=== PATIENT | male | born 1950 | race Caucasian/White ===

== ENCOUNTER → 2016-08-17 | Outpatient (CLI) | payer MEDICARE, BC ==
[2016-08-17 08:37] LABS: ALT 72 U/L (21-72); AST 35 U/L (17-59); Alkaline Phosphatase 73 U/L (38-126); Anion Gap 10 mmol/L; Blood Urea Nitrogen 18 mg/dL (9-20); Calcium 9.2 mg/dL (8.4-10.2); Carbon Dioxide 27 mmol/L (22-30); Chloride 105 mmol/L (98-107); Cholesterol 160 mg/dL (<200); Glucose 96 mg/dL (74-99); HDL Cholesterol 43 mg/dL (40-60); Non-African American GFR(MDRD) >60 (>60 ml/min/1.73 sqM); Potassium 4.6 mmol/L (3.5-5.1); Sodium 142 mmol/L (137-145); Total Protein 6.8 g/dL (6.3-8.2); Triglycerides 169 mg/dL (<150)
== END | disposition home or self-care (01) ==
LOC: LABWHC1 07:31
PROVIDERS: ATTEND Internal Medicine Interventional Cardiology
DX: E78.2 Mixed hyperlipidemia (principal)
CPT/HCPCS: 36415; 80053; 80061

== ENCOUNTER → 2017-01-03 | Outpatient (CLI) | payer MEDICARE, BC ==
--- NOTE | 2017-01-03 12:40 | CT ---
EXAMINATION TYPE: CT chest wo con DATE OF EXAM: 01/03/2017 COMPARISON: 11/08/2015 HISTORY: Cough, SOB CT DLP: 480.60 mGycm. Automated Exposure Control for Dose Reduction was Utilized. TECHNIQUE: CT scan of the thorax is performed without IV contrast. FINDINGS: LUNGS: The lungs are grossly clear, there is no concerning parenchymal mass or nodule identified. T here is no pleural effusion or pneumothorax seen. The tracheobronchial tree is patent. Pleural thick ening bilaterally. Subpleural nodularity is stable. Multiple blebs are seen compatible with chronic o bstructive pulmonary disease. Subsegmental atelectasis at both lung bases. MEDIASTINUM: Lack of IV contrast is noted to limit evaluation for mediastinal and especially hilar ad enopathy. There is a 4 x 3.6 cm mass in the anterior mediastinum which previously measured 4 x 2.9 cm . Coronary artery calcification noted. Heart is enlarged. Trace of pericardial fluid seen.. OTHER: Calcified lesion in the spleen is stable may be related to calcified cyst or previous hematoma . Hypertrophic and degenerative change of the spine. Small hiatal hernia. IMPRESSION: 1. Mild progression of the anterior mediastinal mass. Measures 4 x 3.6 cm and previously measured 4 x 2.9 cm. #2. Subpleural subcentimeter nodularity bilaterally is stable and likely postinflammatory.
== END | disposition home or self-care (01) ==
LOC: RADCTMAIN 12:08
PROVIDERS: ATTEND Internal Medicine Pulmonary Disease
DX: J98.59 Other diseases of mediastinum, not elsewhere classified (principal); R91.1 Solitary pulmonary nodule; R06.02 Shortness of breath
CPT/HCPCS: 71250

== ENCOUNTER → 2017-03-07 | Outpatient (CLI) | payer MEDICARE, BC ==
[2017-03-07 09:13] LABS: ALT 72 U/L (21-72); AST 34 U/L (17-59); Cholesterol 160 mg/dL (<200); HDL Cholesterol 45 mg/dL (40-60)
== END | disposition home or self-care (01) ==
LOC: LABWHC1 08:44
PROVIDERS: ATTEND Internal Medicine Interventional Cardiology
DX: E78.2 Mixed hyperlipidemia (principal)
CPT/HCPCS: 36415; 80061; 84450; 84460

== ENCOUNTER → 2017-09-06 | Outpatient (CLI) | payer MEDICARE, BC ==
[2017-09-06 08:59] LABS: ALT 60 U/L (21-72); AST 35 U/L (17-59); Albumin 4.2 g/dL (3.5-5.0); Alkaline Phosphatase 74 U/L (38-126); Anion Gap 10 mmol/L; Blood Urea Nitrogen 18 mg/dL (9-20); Calcium 9.8 mg/dL (8.4-10.2); Carbon Dioxide 29 mmol/L (22-30); Chloride 105 mmol/L (98-107); Cholesterol 163 mg/dL (<200); Glucose 102 mg/dL (74-99); HDL Cholesterol 43 mg/dL (40-60); LDL Cholesterol,Calculated 88 mg/dL (0-99); Potassium 4.8 mmol/L (3.5-5.1); Sodium 144 mmol/L (137-145); Total Bilirubin 1.4 mg/dL (0.2-1.3); Total Protein 6.7 g/dL (6.3-8.2); Triglycerides 161 mg/dL (<150)
== END | disposition home or self-care (01) ==
LOC: LABWHC1 07:54
PROVIDERS: ATTEND Internal Medicine Interventional Cardiology
DX: E78.2 Mixed hyperlipidemia (principal)
CPT/HCPCS: 36415; 80053; 80061

== ENCOUNTER → 2018-02-18 | Outpatient (CLI) | payer BC, MEDICARE ==
--- NOTE | 2018-02-18 09:46 | CT ---
EXAMINATION TYPE: CT chest wo con DATE OF EXAM: 02/18/2018 COMPARISON: Prior chest CT January 03, [address] studies[address] PET/CT April 17, 2013. HISTORY: Cough, Shortness of breath, asbestos exposure CT DLP: 758 mGycm. Automated Exposure Control for Dose Reduction was Utilized. TECHNIQUE: CT scan of the thorax is performed without IV contrast. FINDINGS: On localizer image there is round density projecting over lateral left lower lung but this likely corresponds to external anterior density coronal image 25 has no new nodule or mass is clearly seen. LUNGS: There is persistent focal pleural-based scarring laterally left lung base near fissure axial i mage 36 and lateral linear scarring in the right lung base with additional linear scarring medially i n the left lung base. No pleural effusion or pneumothorax is seen bilaterally. No suspicious consolid ation is present. No concerning nodules or masses are noted. MEDIASTINUM: Lack of IV contrast is noted to limit evaluation for mediastinal and especially hilar ad enopathy. There are no definitive new greater than 1 cm hilar or mediastinal lymph nodes. There is p ersistent anterior mediastinal mass anterior to ascending aorta measuring 3.0 x 1.9 cm current study diminished in size from most recent exam one year earlier, enlarged in size from older exams 2011 and 2013 where there was no suspicious hypermetabolic uptake on PET/CT. No cardiomegaly or pericardial e ffusion is seen. Moderate Coronary artery calcification LAD is redemonstrated which is noted marker f or coronary artery disease. Main pulmonary artery is dilated at 3.4 cm at bifurcation axial image 23, CT findings consistent with underlying pulmonary artery hypertension. OTHER: There is stable rim calcified 2.0 cm low dense lesion laterally in spleen presumed benign. The re is partial visualization of exophytic low dense lesion posteriorly mid pole level left kidney pres umed benign simple cyst axial image 69 significant change from PET/CT. There is retroaortic left gulshan l vein which is normal variant. Moderate multilevel spurring to the mid to lower thoracic spine is re demonstrated. IMPRESSION: 1. Interval diminished size of the anterior mediastinal mass. No new suspicious masses or nodules adrianna ntified.
== END | disposition home or self-care (01) ==
LOC: RADCTMAIN 08:36
PROVIDERS: ATTEND Internal Medicine Pulmonary Disease
DX: R91.8 Other nonspecific abnormal finding of lung field (principal)
CPT/HCPCS: 71250

== ENCOUNTER → 2018-03-24 | Outpatient (CLI) | payer MEDICARE ==
[2018-03-24 09:26] LABS: ALT 49 U/L (21-72); AST 31 U/L (17-59); Cholesterol 195 mg/dL (<200); HDL Cholesterol 43 mg/dL (40-60); LDL Cholesterol,Calculated 110 mg/dL (0-99); Triglycerides 208 mg/dL (<150)
== END | disposition home or self-care (01) ==
LOC: LABWHC1 08:26
PROVIDERS: ATTEND Internal Medicine Interventional Cardiology
DX: E78.2 Mixed hyperlipidemia (principal)
CPT/HCPCS: 36415; 80061; 84450; 84460

== ENCOUNTER → 2018-06-24 | Outpatient (CLI) | payer MEDICARE ==
--- NOTE | 2018-06-24 13:46 | CT ---
EXAMINATION TYPE: CT chest wo con DATE OF EXAM: 06/24/2018 COMPARISON: 02/18/2018, 11/08/2015, 01/03/2017 HISTORY: 68-year-old male Shortness of breath. Follow up scan for asbestosis. TECHNIQUE: Contiguous axial scanning of the chest without IV contrast. Coronal and sagittal reconstru ctions performed. CT DLP: 504.7 mGycm Automated exposure control for dose reduction was used. FINDINGS: Heart is normal size with trace anterior basilar pericardial fluid. Coronary vessel calcifications ar e present in remarkable for coronary artery disease. Aorta normal caliber with conventional vessel branching anatomy. Large caliber to the main right and left pulmonary arteries are 2.9 and 2.6 cm, respectively, suggest ing underlying pulmonary arterial hypertension. Redemonstrated anterior mediastinal lobulated soft tissue mass, currently measuring 3.2 x 1.9 cm. On 02/18/2018, this measured 3.0 x 1.9 cm. On 01/03/2017, this measured approximately 5.1 x 3.4 cm. Smaller from 2017 and relatively stable from the patient's recent 02/18/2018 study. Otherwise, no thoracic lymphadenopathy. Some irregular subpleural density anterolateral right base suggesting pleural parenchymal scarring. S imilar changes peripheral left base. No appreciable abnormal associated soft tissue. No consolidation or pleural effusion. Minimal scattered emphysematous change is present. No honeycombing or bronchiec tasis. Tiny hiatal hernia. Visualized upper abdomen shows stable peripherally calcified cystic appearing les ion in the lateral spleen measuring 2.4 cm, likely a pseudocyst. Bones endplate spondylosis mid to lower thoracic spine. No osseous destructive process. IMPRESSION: 1. SOME AREAS OF BIBASILAR PLEURAL PARENCHYMAL SCARRING. NO SPECIFIC CT FINDINGS OF ASBESTOSIS AT THI S TIME. 2. COPD WITH MILD EMPHYSEMA. SUSPECT UNDERLYING PULMONARY ARTERIAL HYPERTENSION. 3. THE LOBULATED ANTERIOR MEDIASTINAL SOFT TISSUE MASS MEASURES 3.2 X 1.9 CM, RELATIVELY UNCHANGED FR OM 02/18/2018 AND NOTED TO BE SMALLER COMPARED TO 01/03/2017.
== END | disposition home or self-care (01) ==
LOC: RADCTMAIN 12:18
PROVIDERS: ATTEND Internal Medicine Pulmonary Disease
DX: J43.9 Emphysema, unspecified (principal)
CPT/HCPCS: 71250

== ENCOUNTER → 2018-10-24 | Outpatient (CLI) | payer MEDICARE ==
[2018-10-24 16:54] LABS: LDL Cholesterol,Calculated 90.6 mg/dL (0.0-131.0); VLDL Calculation 37.4 mg/dL (5.00-40.00)
== END ==
LOC: LABWHC1 08:34
PROVIDERS: ATTEND Internal Medicine Interventional Cardiology
DX: E78.2 Mixed hyperlipidemia (principal)
CPT/HCPCS: 36415; 80061; 84450; 84460

== ENCOUNTER → 2019-04-26 | Outpatient (CLI) | payer MEDICARE ==
[2019-04-26 18:47] LABS: Chol/HDL Ratio 4.18; LDL Cholesterol,Calculated 92.4 mg/dL (0.0-131.0); VLDL Calculation 31.6 mg/dL (5.00-40.00)
== END | disposition home or self-care (01) ==
LOC: LABWHC1 08:34
PROVIDERS: ATTEND Nurse Practitioner Adult Health
DX: E78.2 Mixed hyperlipidemia (principal)
CPT/HCPCS: 36415; 80061; 84450; 84460

== ENCOUNTER → 2020-01-19 | Outpatient (CLI) | payer MEDICARE ==
[2020-01-19 14:14] LABS: African American GFR (CKD) 79.5 (60.0-200.0); Albumin 4.2 g/dL (3.80-4.90); BUN/Creat Ratio 17.27 Ratio (12.00-20.00); Calcium 9.2 mg/dL (8.7-10.3); Chol/HDL Ratio 4.41; Globulin 2.1 g/dL (1.6-3.3); LDL Cholesterol,Calculated 103.2 mg/dL (0.0-131.0); Non-African American GFR(CKD) 68.6 (60.0-200.0); Total Bilirubin 2.1 mg/dL (0.2-1.2); Total Protein 6.3 g/dL (6.2-8.2); VLDL Calculation 36.8 mg/dL (5.00-40.00)
== END | disposition home or self-care (01) ==
LOC: LABWHC1 07:18
PROVIDERS: ATTEND Nurse Practitioner Adult Health
DX: E78.2 Mixed hyperlipidemia (principal); I10 Essential (primary) hypertension
CPT/HCPCS: 36415; 80053; 80061

== ENCOUNTER → 2020-03-08 | Outpatient (CLI) | payer MEDICARE ==
--- NOTE | 2020-03-08 15:17 | CT ---
EXAMINATION TYPE: CT chest wo con DATE OF EXAM: 03/08/2020 COMPARISON: CT chest June 24, 2018 and older studies. HISTORY: F/U for lung nodules, asbestosis CT DLP: 735 mGycm. Automated Exposure Control for Dose Reduction was Utilized. TECHNIQUE: CT scan of the thorax is performed without IV contrast. FINDINGS: LUNGS: Mild to moderate bibasilar linear scarring and/or atelectasis greatest in the periphery anteri or to mid aspect of both lower lungs near diaphragm is redemonstrated. No new greater than 4 mm pulmo nary nodules or masses. No pleural effusion or pneumothorax seen bilaterally. MEDIASTINUM: Lack of IV contrast is noted to limit evaluation for mediastinal and especially hilar ad enopathy. There are no definitive new greater than 1 cm hilar or mediastinal lymph nodes. Anterior s uperior mediastinal soft tissue lesion anterior to the ascending aorta measures 2.4 x 1.8 cm current study axial image 26 slightly decreased in size from most recent study axial image 24 No cardiomegaly or pericardial effusion is seen. Coronary artery calcification is redemonstrated which is noted gauri er for underlying coronary artery disease. OTHER: There is partially exophytic rim calcified 1.9 cm low dense lesion along the superior lateral margin of the spleen redemonstrated presumed benign. Subcentimeter exophytic low-density lesion upper pole level laterally left kidney axial image 64 is presumed benign. Moderate multilevel lateral and anterior spurring in the mid to lower thoracic spine is redemonstrated. IMPRESSION: Lobulated anterior superior mediastinal soft tissue mass anterior to the ascending aorta is diminished in size from most recent study consistent with positive treatment response. Correlate c linically. No new suspicious nodules or adenopathy.
== END | disposition home or self-care (01) ==
LOC: RADCTMAIN 13:44
PROVIDERS: ATTEND Internal Medicine Pulmonary Disease
DX: J98.59 Other diseases of mediastinum, not elsewhere classified (principal); R22.2 Localized swelling, mass and lump, trunk
CPT/HCPCS: 71250

== ENCOUNTER → 2020-11-01 | Outpatient (CLI) | payer MEDICARE ==
[2020-11-01 18:02] LABS: Chol/HDL Ratio 4.79; LDL Cholesterol,Calculated 101.6 mg/dL (0.0-131.0); VLDL Calculation 42.4 mg/dL (5.00-40.00)
== END | disposition home or self-care (01) ==
LOC: LABWHC1 08:03
PROVIDERS: ATTEND Nurse Practitioner Adult Health
DX: E78.2 Mixed hyperlipidemia (principal)
CPT/HCPCS: 36415; 80061; 84450; 84460

== ENCOUNTER → 2021-02-12 | Outpatient (CLI) | payer MEDICARE ==
--- NOTE | 2021-02-12 08:57 | CT ---
EXAMINATION TYPE: CT chest wo con DATE OF EXAM: 02/12/2021 COMPARISON: 03/08/2020 HISTORY: Obstructive sleep apnea, obesity CT DLP: 535.[address] of the chest was performed with lung and mediastinal window settings submitted. The la ck of contrast limits evaluation of the vascular, mediastinal and parenchymal structures including th e upper abdomen. LUNGS: The lungs are clear and free of infiltrate. No atelectasis. No pulmonary nodule or mass is de tected. No pleural effusion. No CT evidence of interstitial lung disease. MEDIASTINUM/WINDY: Thoracic aorta is of normal caliber with limited evaluation given lack of contrast . The heart is enlarged. Of anterior mediastinal nodule redemonstrated measuring 2.4 x 1.5 cm versu s 2.4 x 1.7 cm previously. No lymph nodes greater than 1cm. UPPER ABDOMEN: Round calcified lesion of the spleen is unchanged. OTHER: No significant other abnormality. IMPRESSION: 1. Essentially stable anterior mediastinal mass.
== END | disposition home or self-care (01) ==
LOC: RADCTMAIN 08:20
PROVIDERS: ATTEND Internal Medicine Pulmonary Disease
DX: R22.2 Localized swelling, mass and lump, trunk (principal); J45.20 Mild intermittent asthma, uncomplicated; G47.33 Obstructive sleep apnea (adult) (pediatric); J61 Pneumoconiosis due to asbestos and other mineral fibers; G47.31 Primary central sleep apnea; E66.9 Obesity, unspecified
CPT/HCPCS: 71250

== ENCOUNTER → 2022-01-29 | Outpatient (CLI) | payer MEDICARE ==
--- NOTE | 2022-01-29 15:13 | CT ---
EXAMINATION TYPE: CT chest wo con CT DLP: 570.7 mGycm, Automated exposure control for dose reduction was used. DATE OF EXAM: 01/29/2022 2:28 PM COMPARISON: Multiple CT chest most recent 02/12/2021. CLINICAL INDICATION:Male, 71 years old with history of J61 asbestosis, Lung nodule and asbestosis exp osure. TECHNIQUE: Multiple axial images were obtained through the chest following the administration of 100 cc of Isovue 300. FINDINGS: LUNGS/ PLEURA: Evidence of focal consolidation, pneumothorax or pleural effusion. There is mild strea [place] atelectasis scarring seen within the left lung base. AIRWAY: Patent and unremarkable.. HEART: Mildly enlarged for size heart with mild to moderate coronary artery atherosclerosis. MEDIASTINUM: Anterior mediastinal lesion with peripheral constipation measures similarly at 2.6 x 1.4 cm when measuring similarly dating back to 2020 and may be fractionally larger compared to 2019. VASCULATURE: No aortic aneurysm. The pulmonary trunk is mildly dilated measuring up to 3.4 cm. Scatt ered atherosclerosis of the arterial vasculature. MUSCULOSKELETAL: No acute osseous abnormalities SOFT TISSUES/LYMPH NODES: Unremarkable. LOWER NECK: No significant findings. UPPER ABDOMEN: Stable splenic peripherally calcified lesion dating back to multiple priors likely rep resenting pseudocyst. IMPRESSION: 1. Unchanged anterior mediastinal lesion dating back to 2020 mildly larger than 2020. 2. Mild cardiomegaly. 3. Mild coronary artery atherosclerosis.
== END | disposition home or self-care (01) ==
LOC: RADCTMAIN 14:04
PROVIDERS: ATTEND Internal Medicine Pulmonary Disease
DX: G47.33 Obstructive sleep apnea (adult) (pediatric) (principal); J45.20 Mild intermittent asthma, uncomplicated; J61 Pneumoconiosis due to asbestos and other mineral fibers; R22.2 Localized swelling, mass and lump, trunk
CPT/HCPCS: 71250

== ENCOUNTER → 2022-05-03 | Outpatient (CLI) | payer MEDICARE ==
[2022-05-03 16:21] LABS: ALT 41 U/L (10-49); AST 28 U/L (14-35); African American GFR (CKD) 71.5 (60.0-200.0); Albumin 4.3 g/dL (3.8-4.9); Albumin/Globulin Ratio 2.33 (1.60-3.17); Alkaline Phosphatase 71 U/L (41-126); BUN/Creat Ratio 17.88 Ratio (12.00-20.00); Blood Urea Nitrogen 21.1 mg/dL (9.0-27.0); Calcium 9.3 mg/dL (8.7-10.3); Chloride 107 mmol/L (96-109); Chol/HDL Ratio 4.12 Ratio; Globulin 1.8 g/dL (1.6-3.3); Glucose 106 mg/dL (70-110); LDL Cholesterol,Calculated 91.3 mg/dL (0.0-131.0); Non-African American GFR(CKD) 61.7 (60.0-200.0); Potassium 4.9 mmol/L (3.5-5.5); Sodium 142 mmol/L (135-145); Total Protein 6.1 g/dL (6.2-8.2)
== END | disposition home or self-care (01) ==
LOC: LABWHC1 08:33
PROVIDERS: ATTEND Internal Medicine Interventional Cardiology
DX: I10 Essential (primary) hypertension (principal); E78.2 Mixed hyperlipidemia
CPT/HCPCS: 36415; 80053; 80061

== ENCOUNTER → 2023-02-03 | Outpatient (CLI) | payer MEDICARE ==
[2023-02-03 12:20] LABS: ALT 40 U/L (10-49); AST 30 U/L (14-35); Albumin 4.4 d/dL (3.8-4.9); Alkaline Phosphatase 67 U/L (41-126); BUN/Creat Ratio 15.09 Ratio (12.00-20.00); Blood Urea Nitrogen 16.6 mg/dL (9.0-27.0); Calcium 9.3 mg/dL (8.7-10.3); Carbon Dioxide 24.9 mmol/L (21.6-31.8); Chloride 108 mmol/L (96-109); Chol/HDL Ratio 4.03 Ratio; Globulin 2.1 d/dL (1.6-3.3); Glucose 103 mg/dL (70-110); LDL Cholesterol,Calculated 97.9 mg/dL (0.0-131.0); Potassium 4.5 mmol/L (3.5-5.5); Sodium 143 mmol/L (135-145); Total Bilirubin 1.1 mg/dL (0.3-1.2); Total Protein 6.5 d/dL (6.2-8.2)
== END | disposition home or self-care (01) ==
LOC: LABWHC1 08:18
PROVIDERS: ATTEND Internal Medicine Interventional Cardiology
DX: E78.2 Mixed hyperlipidemia (principal)
CPT/HCPCS: 36415; 80053; 80061

== ENCOUNTER → 2024-01-09 | Outpatient (CLI) | payer MEDICARE ==
[2024-01-09 15:38] LABS: BUN/Creat Ratio 16.73 Ratio (12.00-20.00); Blood Urea Nitrogen 18.4 mg/dL (9.0-27.0); Chol/HDL Ratio 4.35 Ratio; Glucose 111 mg/dL (70-110); LDL Cholesterol,Calculated 110.8 mg/dL (0.0-131.0)
[2024-01-09 15:39] LABS: ALT 37 U/L (10-49); AST 29 U/L (14-35); Albumin 4.4 g/dL (3.8-4.9); Alkaline Phosphatase 69 U/L (41-126); Calcium 9.5 mg/dL (8.7-10.3); Carbon Dioxide 24.6 mmol/L (21.6-31.8); Chloride 109 mmol/L (96-109); Potassium 4.5 mmol/L (3.5-5.5); Sodium 144 mmol/L (135-145); Total Bilirubin 1.2 mg/dL (0.3-1.2); Total Protein 6.4 g/dL (6.2-8.2)
== END | disposition home or self-care (01) ==
LOC: LABWHC1 07:29
PROVIDERS: ATTEND Internal Medicine Interventional Cardiology
DX: I10 Essential (primary) hypertension (principal); E78.2 Mixed hyperlipidemia
CPT/HCPCS: 36415; 80053; 80061